=== PATIENT | female | born 1955 | race Caucasian/White ===

== ENCOUNTER 2017-11-13 14:44 | Inpatient (IN) ==
[2017-11-13 15:40] LABS: Basophils # 0.1 K/mcL (0.0-0.2); Basophils % 1.2 %; Eosinophils # 0.2 K/mcL (0.0-0.6); Eosinophils % 2.4 %; Hematocrit 48.1 % (35.3-44.9); Hemoglobin 15.3 g/dL (11.5-15.4); Immature Granulocytes % 0.3 % (0-4); Lymphocytes # 4.2 K/mcL (0.6-4.6); Lymphocytes % 45.3 %; Mean Corpuscular HGB Conc 31.8 g/dL (31.6-35.5); Mean Corpuscular Hemoglobin 28.5 pg (28.0-33.3); Mean Corpuscular Volume 89.6 fL (83.0-100.0); Mean Platelet Volume 9.4 fL (9.4-12.4); Monocytes # 0.8 K/mcL (0.0-1.3); Monocytes % 8.2 %; Neutrophils # 3.9 K/mcL (1.6-8.9); Platelet Count 164 K/mcL (140-400); Red Blood Count 5.37 M/mcL (3.82-4.97); Red Cell Distribution Width 12.9 % (11.5-14.5); Segmented Neutrophils % 42.6 %
[2017-11-13 16:10] LABS: Thyroid Stimulating Hormone 2.277 mcIU/mL (0.340-5.600)
[2017-11-13 16:29] LABS: Bilirubin,Urine Small (Negative); Blood,Urine Negative (Negative); Color,Urine Yellow (Yellow); Glucose,Urine (UA) Normal (Normal); Ketones,Urine Negative (Negative); Leukocyte Esterase,Urine Negative (Negative); Nitrite,Urine Negative (Negative); Protein,Urine Trace mg/dL (Neg-Trace); Specific Gravity,Urine 1.018 (1.010-1.025); Urobilinogen,Urine Normal (Normal)
[2017-11-13 16:32] LABS: Bacteria,Urine Moderate per hpf (None-Few); Hyaline Casts,Urine None Seen per lpf (None-Few); Squamous Epithelial Cell,Urine Many per lpf (None-Few)
[2017-11-13 16:35] LABS: Clarity,Urine Slightly Hazy (Clear)
--- NOTE | 2017-11-13 16:52 | Emergency Department Note ---
Disposition Clinical Impression: Bradycardia Disposition: Admitted As Inpatient Condition: Good Referrals: Husam Gentile MD [Primary Care Provider] - Forms: ED Satisfaction Letter, Work/School Release General Adult HPI - General Chief complaint: ED General Medical Stated complaint: low bp, "hot" Time Seen by Provider: 11/13/17 15:07 Source: patient Limitations: no limitations Nursing Notes Reviewed: Yes Vital Signs Reviewed: Yes - History of Present Illness HPI Narrative: Patient presents today for generalized weakness, bradycardia, hypotension. Patient was referred from the pulmonology office. Patient states she has felt weak and tired ever since she had a fall in September. Patient states that she is not has not had the energy to do things she normally would. The patient had a blood pressure of 80 systolic in the pulmonology office. Upon arrival to the emergency department her heart rate is 46 and sinus. The patient's blood pressure is 120 systolic. The patient has generalized fatigue and flat affect. The medication list includes metoprolol but no other cardioactive medications. The patient states she has no history of cardiac disease. Patient will receive EKG as well as some labs and evaluation for possible infection. Pain Scale: 6 - Related Data Previous Rx's Medication Instructions Recorded Lidocaine Patch [Lidoderm 5% patch] 1 each TP DAILY PRN #3 adh..patch 09/19/17 Allergies Allergy/AdvReac Type Severity Reaction Status Date / Time codeine Allergy Nausea Verified 11/06/15 21:38 Iodinated Contrast- Oral and Allergy Nausea Verified 11/07/15 08:49 IV Dye Review of Systems: CONSTITUTIONAL: Weakness and fatigue No weight loss, fever, chills HEENT: Eyes: No visual changes. Ears, Nose, Throat: No hearing loss, difficulty talking or unable to swallow. SKIN: No rash or itching. CARDIOVASCULAR: No chest pain, chest pressure or chest discomfort. No palpitations or edema. RESPIRATORY: Occasional cough with nonproductive sputum GASTROINTESTINAL: No anorexia, nausea, vomiting or diarrhea. No abdominal pain or blood. GENITOURINARY: No burning on urination or hematuria. NEUROLOGICAL: No headache, dizziness, syncope, paralysis, ataxia, numbness or tingling in the extremities. No change in bowel or bladder control. MUSCULOSKELETAL: No muscle pain, back pain, joint pain or stiffness. Past Medical History - Past Medical History Medical history: Reports: arthritis, CHF, COPD, coronary artery disease, diabetes, fibromyalgia, GERD, GI bleed, hepatitis, hyperlipidemia, hypertension , osteoporosis, RA, renal disease, other Surgical history: Reports: angioplasty/stent (History of coronary angiography without stents), cholecystectomy, hysterectomy, other (Colonoscopy) Psychiatric history: Reports: anxiety, depression - Social History Smoking Status: Current every day smoker Smokeless Tobacco Status: No Alcohol use: Reports: none Drug use: Reports: none Physical Exam General: Well appearing, nontoxic, no acute distress Head: Normocephalic Atraumatic Eyes: PERRL, EOMI ENT: Airway patent, no stridor Neck: supple, no meningismus Chest: Lungs clear to auscultation bilateral Cardiac: Regular rate and rhythm, no murmurs, rubs or gallops Abdomen: soft, nontender, nondistended; no guarding, rebound, or tenderness to percussion Musculoskeletal: Calves symmetric, nontender, no palpable cord Skin: No rash, normal skin tone Neuro: Alert and Oriented to person, place, and time; No focal deficit, CN 2-12 symmetric and intact - General Limitations: no limitations General appearance: alert Course - Consultations Consultation #1: Discussed with Dr. Urrutia. Patient accepted for admission. Request cardiology consult. Consultation #2: Cardiology notified. Consult has been placed. Vital Signs Temperature 97.9 F 11/13/17 15:07 Pulse Rate 57 11/13/17 15:07 Respiratory Rate 12 11/13/17 15:07 Blood Pressure 123/67 11/13/17 15:07 O2 Sat by Pulse Oximetry 94 11/13/17 15:07 Temperature 97.9 F 11/13/17 15:07 Pulse Rate 51 11/13/17 18:57 Respiratory Rate 14 11/13/17 18:57 Blood Pressure 119/56 11/13/17 18:57 O2 Sat by Pulse Oximetry 94 11/13/17 18:57 Oxygen Delivery Oxygen Delivery Nasal Cannula Medical Decision Making - Medical Records Medical records reviewed: Yes I reviewed the patient's medical records. - Lab Data Lab results reviewed: Yes I reviewed the patient's lab results. Result diagrams: 11/13/17 15:20 11/13/17 15:20 Lab Results 11/13/17 11/13/17 11/13/17 Range/Units 15:20 15:20 15:20 WBC 9.2 (4.3-11.1) K/mcL RBC 5.37 H (3.82-4.97) M/mcL Hgb 15.3 (11.5-15.4) g/dL Hct 48.1 H (35.3-44.9) % MCV 89.6 (83.0-100.0) fL MCH 28.5 (28.0-33.3) pg MCHC 31.8 (31.6-35.5) g/dL RDW 12.9 (11.5-14.5) % Plt Count 164 (140-400) K/mcL MPV 9.4 (9.4-12.4) fL Immature Gran % 0.3 (0-4) % Seg Neutrophils % 42.6 % Lymphocytes % 45.3 % Monocytes % 8.2 % Eosinophils % 2.4 % Basophils % 1.2 % Neutrophils # 3.9 (1.6-8.9) K/mcL Lymphocytes # 4.2 (0.6-4.6) K/mcL Monocytes # 0.8 (0.0-1.3) K/mcL Eosinophils # 0.2 (0.0-0.6) K/mcL Basophils # 0.1 (0.0-0.2) K/mcL Sodium 140 (136-145) mEq/L Potassium 4.6 (3.5-5.1) mEq/L Chloride 108 H (98-107) mEq/L Carbon Dioxide 24 (23-29) mEq/L BUN 18 (8-23) mg/dL Creatinine 0.88 (0.60-1.20) mg/dL Est GFR ( Amer) > 60 (> 60) Est GFR (Non-Af Amer) > 60 (> 60) BUN/Creatinine Ratio 20 (6-26) Glucose 46 L (70-105) mg/dL Calculated Osmolality 289 (280-300) Calcium 9.2 (8.6-10.3) mg/dL Phosphorus 3.1 (2.7-4.5) mg/dL Magnesium 2.0 (1.6-2.6) mg/dL Total Bilirubin 0.4 (0.3-1.0) mg/dL AST 15 (13-39) Units/L ALT 13 (7-52) Units/L Alkaline Phosphatase 65 (34-104) Units/L Troponin I < 0.03 (< 0.04) ng/mL Serum Total Protein 0.0 L (6.4-8.9) g/dL Albumin 3.6 (3.5-5.7) g/dL Globulin -3.6 L (2.4-3.5) g/dL Albumin/Globulin Ratio -1.0 L* (1.1-2.2) TSH 2.277 (0.340-5.600) mcIU/mL Urine Color (Yellow) Urine Clarity (Clear) Urine pH (5.0-8.0) pH Units Ur Specific [place] (1.010-1.025) Urine Protein (Neg-Trace) mg/dL Urine Glucose (UA) (Normal) mg/dL Urine Ketones (Negative) mg/dL Urine Blood (Negative) Urine Nitrite (Negative) Urine Bilirubin (Negative) Urine Urobilinogen (Normal) mg/dL Ur Leukocyte Esterase (Negative) Urine Microscopic RBC (0-3) per hpf Urine Microscopic WBC (0-3) per hpf Ur Squamous Epith Cells (None-Few) per lpf Urine Bacteria (None-Few) per hpf Hyaline Casts (None-Few) per lpf Ur Culture Indicated? (NO) 11/13/17 Range/Units 15:47 WBC (4.3-11.1) K/mcL RBC (3.82-4.97) M/mcL Hgb (11.5-15.4) g/dL Hct (35.3-44.9) % MCV (83.0-100.0) fL MCH (28.0-33.3) pg MCHC (31.6-35.5) g/dL RDW (11.5-14.5) % Plt Count (140-400) K/mcL MPV (9.4-12.4) fL Immature Gran % (0-4) % Seg Neutrophils % % Lymphocytes % % Monocytes % % Eosinophils % % Basophils % % Neutrophils # (1.6-8.9) K/mcL Lymphocytes # (0.6-4.6) K/mcL Monocytes # (0.0-1.3) K/mcL Eosinophils # (0.0-0.6) K/mcL Basophils # (0.0-0.2) K/mcL Sodium (136-145) mEq/L Potassium (3.5-5.1) mEq/L Chloride (98-107) mEq/L Carbon Dioxide (23-29) mEq/L BUN (8-23) mg/dL Creatinine (0.60-1.20) mg/dL Est GFR ( Amer) (> 60) Est GFR (Non-Af Amer) (> 60) BUN/Creatinine Ratio (6-26) Glucose (70-105) mg/dL Calculated Osmolality (280-300) Calcium (8.6-10.3) mg/dL Phosphorus (2.7-4.5) mg/dL Magnesium (1.6-2.6) mg/dL Total Bilirubin (0.3-1.0) mg/dL AST (13-39) Units/L ALT (7-52) Units/L Alkaline Phosphatase (34-104) Units/L Troponin I (< 0.04) ng/mL Serum Total Protein (6.4-8.9) g/dL Albumin (3.5-5.7) g/dL Globulin (2.4-3.5) g/dL Albumin/Globulin Ratio (1.1-2.2) TSH (0.340-5.600) mcIU/mL Urine Color Yellow (Yellow) Urine Clarity Slightly Hazy (Clear) Urine pH 7.0 (5.0-8.0) pH Units Ur Specific [place] 1.018 (1.010-1.025) Urine Protein Trace (Neg-Trace) mg/dL Urine Glucose (UA) Normal (Normal) mg/dL Urine Ketones Negative (Negative) mg/dL Urine Blood Negative (Negative) Urine Nitrite Negative (Negative) Urine Bilirubin Small H (Negative) Urine Urobilinogen Normal (Normal) mg/dL Ur Leukocyte Esterase Negative (Negative) Urine Microscopic RBC 0-3 (0-3) per hpf Urine Microscopic WBC 0-3 (0-3) per hpf Ur Squamous Epith Cells Many H (None-Few) per lpf Urine Bacteria Moderate H (None-Few) per hpf Hyaline Casts None Seen (None-Few) per lpf Ur Culture Indicated? NO (NO) - Radiology Data Radiology results reviewed: Yes I reviewed the patient's radiology results. - EKG Data EKG #1 EKG attestation: Yes I reviewed and interpreted this EKG. EKG results narrative: EKG shows sinus bradycardia with minimal ST depressions. The rate of 40 to the R1 89. QRS 93. QTC 450. No significant change from previous bradycardia of . Attestation Statement - Attestation Attestation: I examined this patient and my medical decision-making was reviewed with the Resident Physician. I agree with the documented findings, disposition and treatment plan as described except to the extent set forth below. Patient to the emergency department with a chief complaint weakness. Patient went to see her PCP and was sent in for low blood pressure. Patient states this happens often. Denies fever. Denies chest pain. She is short of breath without chronic for her. On examination she is in no acute distress. Blood pressure stable here. She is bradycardic. Plan. Cardiac workup. Likely observation.
[2017-11-13 17:04] LABS: RBC,Urine 0-3 per hpf (0-3); WBC,Urine 0-3 per hpf (0-3)
[2017-11-13 18:49] LABS: Alanine Aminotransferase 13 Units/L (7-52); Albumin 3.6 g/dL (3.5-5.7); Alkaline Phosphatase 65 Units/L (34-104); Aspartate Amino Transferase 15 Units/L (13-39); BUN/Creatinine Ratio 20 (6-26); Bilirubin,Total 0.4 mg/dL (0.3-1.0); Blood Urea Nitrogen 18 mg/dL (8-23); Calcium 9.2 mg/dL (8.6-10.3); Carbon Dioxide 24 mEq/L (23-29); Chloride 108 mEq/L (98-107); Glucose 46 mg/dL (70-105); Osmolality,Calculated 289 (280-300); Phosphorous 3.1 mg/dL (2.7-4.5); Potassium 4.6 mEq/L (3.5-5.1); Sodium 140 mEq/L (136-145); eGFR For Non-African Americans > 60 (> 60)
--- NOTE | 2017-11-13 22:25 | Internal Med History&Physical ---
<Pascale Bazan - Last Filed: 11/14/17 00:55> Date of Encounter: 11/14/17 Time of Encounter: 22:23 Assessment and Plan (1) Bradycardia Current visit: Yes Status: Acute Heart rate has ranged from 40s to 50s. EKG shows sinus bradycardia with minimal ST depressions--unchanged from EKG done in 2016. TSH of 2.277 is WNL - Cardiac monitoring - Toprol XL held - Cardiology consulted (2) Hypotension Current visit: Yes Status: Acute Sent to ED from pulmonology office for reported systolic BP in 80's. BP of 123/ 67 in the emergency department. BP currently table on the floor. -trazodone and lisinopril held (3) Coronary artery disease Current visit: Yes Status: Acute EKG shows sinus bradycardia with minimal ST depressions--unchanged from EKG done in 2016. Last nuclear stress test June 2016 showed no ischemia or infarction, gated EF 62% - Cardiac monitoring - Continue rosuvastatin 20mg - Toprol XL being held d/t bradycardia Qualifiers: Coronary Disease-Associated Artery/Lesion type: [place] artery [place] vs. transplanted heart: [place] heart Associated angina: without angina Qualified Code(s): I25.10 - Atherosclerotic heart disease of [place] coronary artery without angina pectoris (4) Chronic obstructive pulmonary disease Current visit: No Status: Chronic Saturating well in mid 90%'s on room air. -Continue home bronchodilator and inhaled corticosteroids -Duonebs Q6H as needed -IV solumedrol Qualifiers: COPD type: emphysema Emphysema type: unspecified Qualified Code(s): J43.9 - Emphysema, unspecified (5) DVT prophylaxis Current visit: No Status: Acute 5,000 units SubQ heparin Q12H Internal Medicine - H&P: HPI Chief complaint: generalized weakness History of present illness: Ms. 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 Pt is not the best historian, her complaints and answers are vague. She describes episodes of feeling "tired and real sleepy" that sometimes last up to 1 week. She states that she has not felt like herself for years, but it seems to have gotten worse since coming home from [employer] after a stroke last October--states she's fallen 29 times since then. She denies recent illness, weight loss, fever, chills. Admits to occasional chest pains, but has no c/o this recently, she is not able to provide further details about what causes these chest pains. She also admits to her heart skipping beats but again is unable to describe the circumstances under which this occurs or how often it occurs. She has some wheezing and shortness of breath with exertion but sometimes has it with rest. She denies diarrhea, constipation, vomiting, bloody stools; admits occasional nausea. Initial evaluation and work up started in ED. Her BP was 123/67 and pulse of 57. CBC and CMP (serum glucose measured as 46, but likely a lab error; POC glucose was 143) unremarkable, troponin WNL, and TSH WNL. EKG showed sinus bradycardia with minimal ST depressions, which is unchanged from her last EKG in June 2016. CXR shows bilateral mild airspace disease. She was admitted for cardiac workup of her bradycardia. Past Med Surg Social Fam HX - Past Medical History Medical history: arthritis, CHF, COPD, coronary artery disease, diabetes, fibromyalgia, GERD, GI bleed, hepatitis, hyperlipidemia, hypertension, osteoporosis, RA, renal disease, other Psychiatric history: anxiety, depression - Past Surgical History Surgical History: angioplasty/stent (History of coronary angiography without stents), cholecystectomy, hysterectomy, other (Colonoscopy) - Social History Smoking Status: Current every day smoker Smokeless Tobacco Status: No Alcohol use: none Drug use: none - Family History Mother Age: 46 Living Status: Hx Family Cardiac Disorders: Yes Hx Family Respiratory Disorders: Yes Father Age: 70 Living Status: Hx Family Cardiac Disorders: Yes Hx Family Cancer: Yes Internal Medicine - H&P: Meds Albuterol Sulfate [Proair Hfa] 2 puff IH Q4H PRN 11/13/17 [History] Budesonide/Formoterol 80/4.5 [Symbicort 80/4.5] 2 puff IH BID 11/13/17 [History ] Citalopram [CeleXA] 20 mg PO DAILY 11/13/17 [History] Copper Gluconate [Copper] 5 mg PO DAILY 11/13/17 [History] Folic Acid 0.4 mg PO DAILY 11/13/17 [History] Furosemide [Lasix] 20 mg PO DAILY 11/13/17 [History] GlipiZIDE [Glipizide Xl] 5 mg PO DAILY 11/13/17 [History] Isosorbide MONOnitrate (24 HR) [Imdur] 30 mg PO DAILY 11/13/17 [History] Lisinopril [Zestril] 10 mg PO DAILY 11/13/17 [History] Melatonin [Melatin] 3 mg PO HS PRN 11/13/17 [History] Metoprolol XL (24 HR) Succ [Toprol XL] 50 mg PO DAILY 11/13/17 [History] Mirtazapine [Remeron] 15 mg PO HS 11/13/17 [History] Nitroglycerin [Nitrostat] 0.4 mg SL Q5M PRN 11/13/17 [History] Pantoprazole Sodium [Protonix] 40 mg PO DAILY 11/13/17 [History] Pregabalin [Lyrica] 75 mg PO BID 11/13/17 [History] Ropinirole HCl [Requip] 0.5 mg PO HS 11/13/17 [History] Rosuvastatin [Crestor] 20 mg PO HS 11/13/17 [History] Sucralfate [Carafate] 1 gm PO BID 11/13/17 [History] Tiotropium [Spiriva] 18 mcg IH 0700 11/13/17 [History] Trazodone HCl 100 mg PO HS 11/13/17 [History] clonazePAM [Klonopin] 0.5 mg PO BID 11/13/17 [History] clonazePAM [Klonopin] 1 mg PO QAM 11/13/17 [History] 3 Allergy/AdvReac Type Severity Reaction Status Date / Time codeine Allergy Nausea Verified 11/06/15 21:38 Iodinated Contrast- Oral and Allergy Nausea Verified 11/07/15 08:49 IV Dye All Systems PM: A 14-system review of systems was performed and is negative for pertinent findings except as documented above in the HPI. - Constitutional Vitals: Temp Pulse Resp BP Pulse Ox 97.9 F 46 18 111/55 95 11/13/17 15:07 11/13/17 21:12 11/13/17 21:12 11/13/17 21:12 11/13/17 21:12 General appearance: Present: A&O X 3, no acute distress - Head Head exam: Present: atraumatic - Eye Eye exam: Present: EOMI, normal appearance, PERRL - Neck Neck exam general surgery: Present: supple, trachea midline - Respiratory Respiratory exam: Present: decreased breath sounds (bilateral), rales (faint, bibasilar). Absent: wheezes, tachypnea - Cardiovascular Cardiovascular exam: Present: bradycardia, +S1, +S2. Absent: diastolic murmur, systolic murmur Additional comments: regular rhythm - GI/Abdominal GI/Abdominal exam: Present: soft. Absent: distended, tenderness Additional comments: bowel sounds not auscultated - Extremities Exam Extremities exam: Present: pedal edema (pitting edema RLE), warm. Absent: cyanotic, tenderness - Back Exam Back exam: Present: normal inspection - Neurological Exam Neurological exam: Present: alert, CN II-XII intact, oriented X3, no focal deficits. Absent: speech deficit Internal Med - H&P Results - Labs CBC & Chem 7: 11/13/17 15:20 11/13/17 15:20 <Brett Urrutia P - Last Filed: 11/14/17 01:20> Date of Encounter: 11/14/17 Internal Medicine - H&P: HPI History of present illness: Ms. Williamson is a 62 year old female All Systems PM: A 10-system review of systems was performed and is negative for pertinent findings except as documented above in the HPI. - Constitutional Vitals: Temp Pulse Resp BP Pulse Ox 97.6 F 41 16 111/66 96 11/13/17 23:04 11/13/17 23:04 11/13/17 23:04 11/13/17 23:04 11/13/17 23:04 Internal Med - H&P Results - Labs CBC & Chem 7: 11/13/17 15:20 11/13/17 15:20 - Attending Attestation I examined this patient and my medical decision-making was reviewed with the Resident Physician. I agree with the documented findings, disposition and treatment plan as described except to the extent set forth below. 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 Noted that patient had a bradycardia/hypotension. Send the emergency room for further evaluation. Cardiology on the board for bradycardia. We will start antibiotics/steroid/Yudi to for possible COPD exacerbation. Blood pressure presently within acceptable range. Close monitoring of the respiratory status. I have personally examined this patient in the emergency room #6. Patient's family at bedside. Plan of care explained to patient's /son. All questions answered.
[2017-11-13] MEDS ORDERED: Naloxone 0.4 MG/ML INJ IVP PRN (23:22)
[2017-11-13] MEDS ORDERED: Melatonin 3 MG TABLET PO PRN (23:26)
[2017-11-14 02:13] LABS: Total Protein 6.8 g/dL (6.4-8.9)
[2017-11-14 02:14] LABS: Albumin/Globulin Ratio 1.1 (1.1-2.2); Globulin 3.2 g/dL (2.4-3.5)
[2017-11-14 06:45] LABS: Basophils # 0.1 K/mcL (0.0-0.2); Basophils % 1.1 %; Eosinophils # 0.2 K/mcL (0.0-0.6); Eosinophils % 2.1 %; Hematocrit 48.4 % (35.3-44.9); Hemoglobin 14.6 g/dL (11.5-15.4); Immature Granulocytes % 0.5 % (0-4); Lymphocytes # 3.9 K/mcL (0.6-4.6); Lymphocytes % 44.1 %; Mean Corpuscular HGB Conc 30.2 g/dL (31.6-35.5); Mean Corpuscular Hemoglobin 27.8 pg (28.0-33.3); Mean Corpuscular Volume 92.2 fL (83.0-100.0); Mean Platelet Volume 9.3 fL (9.4-12.4); Monocytes # 0.6 K/mcL (0.0-1.3); Monocytes % 6.5 %; Platelet Count 142 K/mcL (140-400); Red Blood Count 5.25 M/mcL (3.82-4.97); Red Cell Distribution Width 12.7 % (11.5-14.5); Segmented Neutrophils % 45.7 %
[2017-11-14 07:08] LABS: Alanine Aminotransferase 11 Units/L (7-52); Albumin 3.4 g/dL (3.5-5.7); Albumin/Globulin Ratio 1.1 (1.1-2.2); Alkaline Phosphatase 61 Units/L (34-104); Aspartate Amino Transferase 13 Units/L (13-39); BUN/Creatinine Ratio 20 (6-26); Bilirubin,Total 0.5 mg/dL (0.3-1.0); Blood Urea Nitrogen 17 mg/dL (8-23); Calcium 9.1 mg/dL (8.6-10.3); Chloride 107 mEq/L (98-107); Glucose 133 mg/dL (70-105); Osmolality,Calculated 291 (280-300); Potassium 4.3 mEq/L (3.5-5.1); Sodium 139 mEq/L (136-145); Total Protein 6.4 g/dL (6.4-8.9); eGFR For Non-African Americans > 60 (> 60)
[2017-11-14] MEDS: Budesonide/Formoterol 80/4.5 MDI IH SCH ×2 (08:08→20:51)
[2017-11-14] MEDS: Tiotropium 18 MCG inhalation IH SCH (08:09)
[2017-11-14] MEDS: predniSONE 20 MG TABLET PO SCH (08:54)
[2017-11-14] MEDS: Pregabalin 75 MG CAPSULE PO SCH ×2 (08:55→20:23)
[2017-11-14] MEDS: levoFLOXacin 500 MG TABLET PO SCH (08:55)
[2017-11-14 12:41] LABS: Carbon Dioxide 26 mEq/L (23-29)
[2017-11-14] MEDS ORDERED: *HR* Dextrose 50 % in Water (Syg) 50 ML SYRINGE IVP PRN (13:12)
[2017-11-14] MEDS ORDERED: Dextrose Gel 15 GM/37.5 ML TUBE PO PRN ×2 (13:12)
[2017-11-14] MEDS ORDERED: D5% in Water 1,000 ML IVC PRN (13:12)
--- NOTE | 2017-11-14 16:10 | Cardiology Consult Note ---
Date of Encounter: 11/14/17 Time of Encounter: 16:08 Assessment and Plan (1) Bradycardia Current Visit: Yes Status: Acute Hold toprol at this time and do not restart unless hr above 65 bpm. If toprol to be restared than half dose only I would also hold trazadone due to the mildly prolonged QTc An event monitor is reasonable on DC No further cardiac testing at this time Discussion w patient/family: The assessment and plan as outlined above was discussed with the patient and/or family members who expressed understanding and agreement. All questions were answered. Thank you for involving us in the care of your patient. Please call with any questions. History of Present Illness Consult date: 11/14/17 Consult reason: weakness and bradycardia Chief complaint: weak History of present illness: Ms. Williamson is a 62 year old female with nml EF and negative stress test 06/2016 presents with bradycardia and hypotension from the pulmonary office. On arrival 120/60 and hr in the high 50's. Her QTc is mildly prolonged and rate of 42 bpm noted on the EKG. She denies any chest pain, orthopnea or PND. She has multiple mechanical falls without any TLOC. Past Med Surg Social Fam HX - Past Medical History Medical history: arthritis, CHF, COPD, coronary artery disease, diabetes, fibromyalgia, GERD, GI bleed, hepatitis, hyperlipidemia, hypertension, osteoporosis, RA, renal disease, other Psychiatric history: anxiety, depression - Past Surgical History Surgical History: angioplasty/stent (History of coronary angiography without stents), cholecystectomy, hysterectomy, other (Colonoscopy) - Social History Smoking Status: Current every day smoker Packs per day: 0.5 Smokeless Tobacco Status: No Alcohol use: none Drug use: none - Family History Mother Age: 46 Living Status: Hx Family Cardiac Disorders: Yes Hx Family Respiratory Disorders: Yes Father Age: 70 Living Status: Hx Family Cardiac Disorders: Yes Hx Family Cancer: Yes Medications and Allergies Albuterol Sulfate [Proair Hfa] 2 puff IH Q4H PRN 11/13/17 [History] Budesonide/Formoterol 80/4.5 [Symbicort 80/4.5] 2 puff IH BID 11/13/17 [History ] Citalopram [CeleXA] 20 mg PO DAILY 11/13/17 [History] Copper Gluconate [Copper] 5 mg PO DAILY 11/13/17 [History] Folic Acid 0.4 mg PO DAILY 11/13/17 [History] Furosemide [Lasix] 20 mg PO DAILY 11/13/17 [History] GlipiZIDE [Glipizide Xl] 5 mg PO DAILY 11/13/17 [History] Isosorbide MONOnitrate (24 HR) [Imdur] 30 mg PO DAILY 11/13/17 [History] Lisinopril [Zestril] 10 mg PO DAILY 11/13/17 [History] Melatonin [Melatin] 3 mg PO HS PRN 11/13/17 [History] Metoprolol XL (24 HR) Succ [Toprol XL] 50 mg PO DAILY 11/13/17 [History] Mirtazapine [Remeron] 15 mg PO HS 11/13/17 [History] Nitroglycerin [Nitrostat] 0.4 mg SL Q5M PRN 11/13/17 [History] Pantoprazole Sodium [Protonix] 40 mg PO DAILY 11/13/17 [History] Pregabalin [Lyrica] 75 mg PO BID 11/13/17 [History] Ropinirole HCl [Requip] 0.5 mg PO HS 11/13/17 [History] Rosuvastatin [Crestor] 20 mg PO HS 11/13/17 [History] Sucralfate [Carafate] 1 gm PO BID 11/13/17 [History] Tiotropium [Spiriva] 18 mcg IH 0700 11/13/17 [History] Trazodone HCl 100 mg PO HS 11/13/17 [History] clonazePAM [Klonopin] 0.5 mg PO BID 11/13/17 [History] clonazePAM [Klonopin] 1 mg PO QAM 11/13/17 [History] 3 Allergy/AdvReac Type Severity Reaction Status Date / Time codeine Allergy Nausea Verified 11/06/15 21:38 Iodinated Contrast- Oral and Allergy Nausea Verified 11/07/15 08:49 IV Dye All Systems Review: The remainder of the systems were reviewed and are negative Physical Examination Vital Signs, Last 4 Hours Temp Pulse Resp BP Pulse Ox 11/14/17 15:49 97.7 F 56 16 138/76 93 11/14/17 12:14 97.6 F 45 17 135/74 95 General: Conversant, No Apparent Distress HEENT: Atraumatic, Normocephaly, Mucus Membranes Moist Neck: No JVD, Normal carotid pulses Cardiac: Reg Rate and Rhythm, Normal S1 and S2, No Murmur Lungs: Normal Breath Sounds, No Wheeze, Rales, Rhonchi Neuro: Alert and responsive, No focal deficits noted Abdomen: Soft, Non-Tender Skin: No rashes noted on visualized skin Musculoskeletal: No Chest Wall Tenderness Extremities: No Clubbing, No Cyanosis, No Edema, Normal Pulses Results 11/14/17 06:35 11/14/17 06:35 Lab Results 11/14/17 11/14/17 06:35 06:35 WBC 8.8 Hgb 14.6 Hct 48.4 H Plt Count 142 Sodium 139 Potassium 4.3 Chloride 107 Carbon Dioxide 26 BUN 17 Creatinine 0.87 Glucose 133 H Calcium 9.1 Total Bilirubin 0.5 AST 13 ALT 11 Alkaline Phosphatase 61 Consult Discharge Plan - Plan Referrals: Husam Gentile MD [Primary Care Provider] - (web request sent on 11/14/17)
[2017-11-14] MEDS: Insulin LISPRO 300 UNITS/3 ML VIAL SQ SCH (16:44)
--- NOTE | 2017-11-14 18:11 | Internal Med Progress Note ---
Date of Encounter: 11/14/17 Time of Encounter: 11:00 - Assessment and plan (1) Bradycardia Current Visit: Yes Status: Acute Assessment and plan: Cardiology consulted with recommendations to continue to hold beta galen at this time. Further recommendations for event monitor on discharge. (2) Coronary artery disease Current Visit: Yes Status: Acute Assessment and plan: Stable; Beta Galen currently been held due to the above Qualifiers: Coronary Disease-Associated Artery/Lesion type: [place] artery [place] vs. transplanted heart: [place] heart Associated angina: without angina Qualified Code(s): I25.10 - Atherosclerotic heart disease of [place] coronary artery without angina pectoris (3) Chronic obstructive pulmonary disease Current Visit: No Status: Chronic Assessment and plan: Continue oral prednisone Qualifiers: COPD type: emphysema Emphysema type: unspecified Qualified Code(s): J43.9 - Emphysema, unspecified (4) DVT prophylaxis Current Visit: No Status: Acute Assessment and plan: Subcutaneous heparin - Subjective Interval history: Patient with episodes of bradycardia overnight - Constitutional Vitals: Temp Pulse Resp BP Pulse Ox 97.7 F 56 16 138/76 93 11/14/17 15:49 11/14/17 15:49 11/14/17 15:49 11/14/17 15:49 11/14/17 15:49 General appearance: Present: A&O X 3, no acute distress - Respiratory Respiratory exam: Present: CTAB. Absent: accessory muscle use, rales, rhonchi, wheezes - Cardiovascular Cardiovascular exam: Present: bradycardia Internal Medicine: Result - Labs CBC & Chem 7: 11/14/17 06:35 11/14/17 06:35 Labs: Short CBC 11/14/17 Range/Units 06:35 WBC 8.8 (4.3-11.1) K/mcL Hgb 14.6 (11.5-15.4) g/dL Hct 48.4 H (35.3-44.9) % Plt Count 142 (140-400) K/mcL Neutrophils # 4.0 (1.6-8.9) K/mcL BMP 11/14/17 06:35 Sodium 139 Potassium 4.3 Chloride 107 Carbon Dioxide 26 BUN 17 Creatinine 0.87 Glucose 133 H Calcium 9.1 Liver Function 11/14/17 Range/Units 06:35 Total Bilirubin 0.5 (0.3-1.0) mg/dL AST 13 (13-39) Units/L ALT 11 (7-52) Units/L Alkaline Phosphatase 61 (34-104) Units/L Albumin 3.4 L (3.5-5.7) g/dL Consult Discharge Plan - Plan Referrals: Husam Gentile MD [Primary Care Provider] - (web request sent on 11/14/17)
[2017-11-14] MEDS ORDERED: Insulin LISPRO 300 UNITS/3 ML VIAL SQ SCH (21:00)
[2017-11-14] MEDS ORDERED: traZODone 50 MG TABLET PO SCH (21:00)
[2017-11-14] MEDS ORDERED: rOPINIRole 0.25 MG TABLET PO SCH (21:00)
--- NOTE | 2017-11-15 07:52 | Event Note ---
Date of Encounter: 11/15/17 Time of Encounter: 07:50 - Cardiology Event Note Telemetry reviewed with average HR previous 12 hours noted to be 59, SB. 2 week event monitor ordered to be placed at discharge. Cardiology will sign off and will follow in outpatient setting. Follow up set.
[2017-11-15] MEDS: Budesonide/Formoterol 80/4.5 MDI IH SCH (07:53)
[2017-11-15] MEDS: Tiotropium 18 MCG inhalation IH SCH (07:54)
[2017-11-15] MEDS: Insulin LISPRO 300 UNITS/3 ML VIAL SQ SCH ×2 (08:01→11:34)
[2017-11-15] MEDS: Pregabalin 75 MG CAPSULE PO SCH (08:08)
[2017-11-15] MEDS: levoFLOXacin 500 MG TABLET PO SCH (08:08)
[2017-11-15] MEDS: predniSONE 20 MG TABLET PO SCH (08:08)
[2017-11-15] MEDS ORDERED: Furosemide 20 MG TABLET PO SCH (09:00)
[2017-11-15 09:40] LABS: Basophils # 0.1 K/mcL (0.0-0.2); Basophils % 1.1 %; Eosinophils # 0.1 K/mcL (0.0-0.6); Eosinophils % 1.2 %; Hematocrit 46.1 % (35.3-44.9); Hemoglobin 14.5 g/dL (11.5-15.4); Immature Granulocytes % 0.3 % (0-4); Mean Corpuscular HGB Conc 31.5 g/dL (31.6-35.5); Mean Corpuscular Hemoglobin 28.4 pg (28.0-33.3); Mean Corpuscular Volume 90.2 fL (83.0-100.0); Mean Platelet Volume 9.7 fL (9.4-12.4); Monocytes # 0.6 K/mcL (0.0-1.3); Monocytes % 6.7 %; Neutrophils # 5.3 K/mcL (1.6-8.9); Platelet Count 131 K/mcL (140-400); Red Blood Count 5.11 M/mcL (3.82-4.97); Red Cell Distribution Width 12.6 % (11.5-14.5); Segmented Neutrophils % 57.7 %
[2017-11-15 09:55] LABS: BUN/Creatinine Ratio 24 (6-26); Blood Urea Nitrogen 20 mg/dL (8-23); Calcium 9.5 mg/dL (8.6-10.3); Carbon Dioxide 29 mEq/L (23-29); Chloride 102 mEq/L (98-107); Glucose 186 mg/dL (70-105); Osmolality,Calculated 291 (280-300); Sodium 137 mEq/L (136-145); eGFR For Non-African Americans > 60 (> 60)
[2017-11-15 10:46] VITALS: BP 120/52
--- NOTE | 2017-11-15 12:02 | Electrocardiograph Report ---
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
[2017-11-15] MEDS ORDERED: Metoprolol XL (24 HR) Succ 25 MG TAB.ER.24H PO SCH (12:45)
--- NOTE | 2017-11-15 15:41 | Discharge Summary ---
- NOTES TO OUTPATIENT PROVIDER Notes to Outpatient Provider: Follow-up with results for event monitor for bradycardia Date of Encounter: 11/15/17 Time of Encounter: 11:00 - Discharge Diagnosis (1) Bradycardia Priority: Primary Status: Acute (2) Coronary artery disease Priority: Secondary Status: Acute Qualifiers: Coronary Disease-Associated Artery/Lesion type: [place] artery [place] vs. transplanted heart: [place] heart Associated angina: without angina Qualified Code(s): I25.10 - Atherosclerotic heart disease of [place] coronary artery without angina pectoris (3) Chronic obstructive pulmonary disease Priority: Secondary Status: Chronic Qualifiers: COPD type: emphysema Emphysema type: unspecified Qualified Code(s): J43.9 - Emphysema, unspecified Hospital course: Patient is a 62-year-old female with past medical history significant for ischemic cardiomyopathy, diabetes, hypertension, hyperlipidemia and COPD who presented to the ER on 11/14/17 from pulmonology office due to bradycardia and hypotension. During patients hospital stay, she remained normotensive. Cardiology was consult for recommendations to decrease dose of beta amber and for patient to wear an event monitor for 2 weeks on discharge. Patient will be discharged to take metoprolol succinate 25 mg daily, to wear event monitor for 2 to weeks and follow-up with [facility]. - Time Spent with Patient Total time spent providing and/or coordinating discharge services: Less than 30 minutes - Discharge Medications Prescriptions: Metoprolol XL (24 HR) Succ [Toprol Xl] 25 mg PO DAILY #30 tab.er.24h Home Medications: Albuterol Sulfate [Proair Hfa] 2 puff IH Q4H PRN 11/13/17 [History] Budesonide/Formoterol 80/4.5 [Symbicort 80/4.5] 2 puff IH BID 11/13/17 [History ] Citalopram [CeleXA] 20 mg PO DAILY 11/13/17 [History] Copper Gluconate [Copper] 5 mg PO DAILY 11/13/17 [History] Folic Acid 0.4 mg PO DAILY 11/13/17 [History] Furosemide [Lasix] 20 mg PO DAILY 11/13/17 [History] GlipiZIDE [Glipizide Xl] 5 mg PO DAILY 11/13/17 [History] Isosorbide MONOnitrate (24 HR) [Imdur] 30 mg PO DAILY 11/13/17 [History] Lisinopril [Zestril] 10 mg PO DAILY 11/13/17 [History] Melatonin [Melatin] 3 mg PO HS PRN 11/13/17 [History] Mirtazapine [Remeron] 15 mg PO HS 11/13/17 [History] Nitroglycerin [Nitrostat] 0.4 mg SL Q5M PRN 11/13/17 [History] Pantoprazole Sodium [Protonix] 40 mg PO DAILY 11/13/17 [History] Pregabalin [Lyrica] 75 mg PO BID 11/13/17 [History] Ropinirole HCl [Requip] 0.5 mg PO HS 11/13/17 [History] Rosuvastatin [Crestor] 20 mg PO HS 11/13/17 [History] Sucralfate [Carafate] 1 gm PO BID 11/13/17 [History] Tiotropium [Spiriva] 18 mcg IH 0700 11/13/17 [History] Trazodone HCl 100 mg PO HS 11/13/17 [History] clonazePAM [Klonopin] 0.5 mg PO BID 11/13/17 [History] clonazePAM [Klonopin] 1 mg PO QAM 11/13/17 [History] Metoprolol XL (24 HR) Succ [Toprol Xl] 25 mg PO DAILY #30 tab.er.24h 11/15/17 [ Rx] Allergies/Adverse Reactions: 3 Allergy/AdvReac Type Severity Reaction Status Date / Time codeine Allergy Nausea Verified 11/06/15 21:38 Iodinated Contrast- Oral and Allergy Nausea Verified 11/07/15 08:49 IV Dye Date of admission: 11/14/17 01:20 Primary care physician: Husam Gentile MD - Constitutional Vitals: Temp Pulse Resp BP Pulse Ox 97.4 F L 53 17 120/52 92 11/15/17 10:41 11/15/17 10:41 11/15/17 10:41 11/15/17 10:41 11/15/17 10:41 General appearance: Present: A&O X 3, no acute distress - Respiratory Respiratory exam: Present: CTAB. Absent: accessory muscle use, rales, rhonchi, wheezes - Cardiovascular Cardiovascular exam: Present: bradycardia, +S1, +S2. Absent: diastolic murmur, gallop, rubs, systolic murmur - Patient Status Disposition: Home Health Service Condition: Good - Discharge Instructions Follow Up With: Husam Gentile MD [Primary Care Provider] - (web request sent on 11/14/17)
--- NOTE | 2017-11-15 15:45 | Physician Discharge Referral ---
Home Health/Hosp Referral Info Transfer to: Home Health - Diagnosis (1) Bradycardia Priority: Primary Status: Acute (2) Coronary artery disease Priority: Secondary Status: Acute (3) Chronic obstructive pulmonary disease Priority: Secondary Status: Chronic - Respiratory Orders Smoking Cessation: Smoking cessation has been advised. For more information, call the [place] Tobacco Quit Line at 7-884-WKSO-NOW. - Services Needed Following services are medically necessary services: Nursing, Physical Therapy, Occupational Therapy - Transfer Medications Prescriptions: Metoprolol XL (24 HR) Succ [Toprol Xl] 25 mg PO DAILY #30 tab.er.24h Home Medications: Albuterol Sulfate [Proair Hfa] 2 puff IH Q4H PRN 11/13/17 [History] Budesonide/Formoterol 80/4.5 [Symbicort 80/4.5] 2 puff IH BID 11/13/17 [History ] Citalopram [CeleXA] 20 mg PO DAILY 11/13/17 [History] Copper Gluconate [Copper] 5 mg PO DAILY 11/13/17 [History] Folic Acid 0.4 mg PO DAILY 11/13/17 [History] Furosemide [Lasix] 20 mg PO DAILY 11/13/17 [History] GlipiZIDE [Glipizide Xl] 5 mg PO DAILY 11/13/17 [History] Isosorbide MONOnitrate (24 HR) [Imdur] 30 mg PO DAILY 11/13/17 [History] Lisinopril [Zestril] 10 mg PO DAILY 11/13/17 [History] Melatonin [Melatin] 3 mg PO HS PRN 11/13/17 [History] Mirtazapine [Remeron] 15 mg PO HS 11/13/17 [History] Nitroglycerin [Nitrostat] 0.4 mg SL Q5M PRN 11/13/17 [History] Pantoprazole Sodium [Protonix] 40 mg PO DAILY 11/13/17 [History] Pregabalin [Lyrica] 75 mg PO BID 11/13/17 [History] Ropinirole HCl [Requip] 0.5 mg PO HS 11/13/17 [History] Rosuvastatin [Crestor] 20 mg PO HS 11/13/17 [History] Sucralfate [Carafate] 1 gm PO BID 02/28/18 [History] Tiotropium [Spiriva] 18 mcg IH 0700 11/13/17 [History] Trazodone HCl 100 mg PO HS 11/13/17 [History] clonazePAM [Klonopin] 0.5 mg PO BID 11/13/17 [History] clonazePAM [Klonopin] 1 mg PO QAM 11/13/17 [History] Metoprolol XL (24 HR) Succ [Toprol Xl] 25 mg PO DAILY #30 tab.er.24h 11/15/17 [ Rx] Allergies/Adverse Reactions: 3 Allergy/AdvReac Type Severity Reaction Status Date / Time codeine Allergy Nausea Verified 11/06/15 21:38 Iodinated Contrast- Oral and Allergy Nausea Verified 11/07/15 08:49 IV Dye Certification: Further, I certify that my clinical findings support that this patient is homebound (i.e. absences from home require considerable and taxing effort and are for medical reasons or hoahaoism services or infrequently or short duration when for other reasons) because: Homebound Reason: Patient requires assistance of a person or device to safely leave home Attestation: My signature below is to certify that this patient is under my care and that I, or nurse practitioner, or a physician's field research assistant working with me, has a face-to -face encounter with this patient.
== END 2017-11-15 16:39 | disposition home health service (06) | DRG 310 ==
LOC: 2ANU 14:44 → EMEROO 14:44 → 2ANU 21:45
PROVIDERS: ADMIT Internal Medicine; ATTEND Internal Medicine